=== PATIENT | female | born 1970 | race Caucasian/White ===

== ENCOUNTER 2017-03-01 14:18 | Inpatient (IN) | payer BC, OTHER ==
[~2017-03-01] VITALS: Ht 154.9 cm; Wt 64.8 kg
[~2017-03-01 14:18] MED LIST changes: -ESTR2TA PO; -ESTR2TAB4 PO; -MACR100C42 PO; -PARO40TA2 PO
[2017-03-01] MEDS ORDERED: ESTR2TA PO (14:29)
[2017-03-01] MEDS ORDERED: ONDANSETRON 4MG/2ML VIAL (J2405) IV ONE (15:00)
[2017-03-01] MEDS ORDERED: KETOROLAC 30 MG/ML VIAL (J1885) IV ONE (15:00)
[2017-03-01] MEDS ORDERED: NS 1,000 ML IV ONE ×2 (15:00→16:45)
[2017-03-01] MEDS ORDERED: LEVALBUTEROL 1.25 MG/0.5 ML CONCENTRATE NEB NEB ONE (15:15)
--- NOTE | 2017-03-01 15:28 | REP ---
Clinical: Cough . Comparison: 01/16/2012 . Technique: PA and lateral. Findings: The mediastinum and cardiac silhouette are normal. The lung [place] are clear and without acute consolidation, effusion, or pneumothorax. The skeletal structures are intact and normal. Impression: 1. No acute cardiopulmonary process. Signed by Raul Cintron MD 03/01/2017 03:20 P
[2017-03-01 15:47] LABS: BASO # 0.2 K/mm3 (0.0-0.2); BASO % 0.9 % (0.0-1.0); EOS # 0.6 K/mm3 (0.0-0.50); LARGE UNSTAINED CELL # 0.7 K/mm3 (0.0-0.4); LARGE UNSTAINED CELL % 2.4 % (0.0-4.0); LYMPH # 2.6 K/mm3 (1.5-4.5); LYMPH % 6.5 % (24.0-44.0); MEAN CORPUSCULAR HEMOGLOBIN 32.4 pg (27.0-33.0); MEAN CORPUSCULAR HGB CONC 32.8 g/dl (32.0-36.5); MEAN CORPUSCULAR VOLUME 98.8 fl (80.0-96.0); MONO # 1.4 K/mm3 (0.0-0.8); MONO % 4.9 % (0.0-5.0); NEUTROPHILS # 24.3 K/mm3 (1.8-7.7); NEUTROPHILS % 83.2 % (36.0-66.0); PLATELET COUNT, AUTOMATED 512 k/mm3 (150-450); RED CELL DISTRIBUTION WIDTH 14.2 % (11.5-14.5); WHITE BLOOD COUNT 29.2 K/mm3 (4.0-10.0)
[2017-03-01] MEDS ORDERED: cefTRIAXone SOD 1 GM in D5W MINI-BAG PLUS 50 ML IV ONE (16:00)
[2017-03-01 16:04] LABS: ALBUMIN 2.6 GM/DL (3.2-5.2); ALBUMIN/GLOBULIN RATIO 0.57 (1.00-1.93); ALKALINE PHOSPHATASE 176 U/L (45-117); ALT/SGPT 29 U/L (12-78); ANION GAP 8 MEQ/L (8-16); AST/SGOT 20 U/L (15-37); BILIRUBIN,TOTAL 0.2 MG/DL (0.2-1.0); BLOOD UREA NITROGEN 17 MG/DL (7-18); CALCIUM LEVEL 8.6 MG/DL (8.5-10.1); CARBON DIOXIDE LEVEL 27 MEQ/L (21-32); CHLORIDE LEVEL 98 MEQ/L (98-107); CREATININE FOR GFR 1.12 MG/DL (0.55-1.02); GLOMERULAR FILTRATION RATE 56.3 (>58); GLUCOSE, FASTING 89 MG/DL (70-105); POTASSIUM SERUM 3.5 MEQ/L (3.5-5.1); SODIUM LEVEL 133 MEQ/L (136-145); TOTAL PROTEIN 7.2 GM/DL (6.4-8.2)
[2017-03-01] MEDS ORDERED: ACETAMINOPHEN 325 MG TAB PO ONE (16:45)
--- NOTE | 2017-03-01 17:26 | REP ---
Clinical: Elevated liver function tests and abdominal pain. Technique: Mock scale ultrasound using curved array transducer. Findings: The liver and pancreas are normal in contour, size, and echogenicity without focal hepatic or pancreatic lesions identified. The patient is status post cholecystectomy. No biliary ductal dilatation is appreciated, and the common bile duct measures 6.9 mm diameter. The right kidney is normal in reniform shape without hydronephrosis and measures 12.3 x 4.4 x 5.0 cm. No ascites. Visualized portions of the abdominal aorta normal. Impression: Normal right upper quadrant and gallbladder abdominal ultrasound. Signed by Raul Cintron MD 03/01/2017 05:19 P
[2017-03-01] MEDS ORDERED: ESTR2TAB4 PO (17:27)
[2017-03-01] MEDS ORDERED: MACR100C42 PO (17:27)
[2017-03-01] MEDS ORDERED: PARO40TA2 PO (17:27)
[2017-03-01 18:00] VITALS: BP 109/64
[2017-03-01] MEDS: NS 1,000 ML IV SCH (20:32)
[2017-03-01] MEDS: metroNIDAZOLE 500 MG in APPROPRIATE DILUENT 1 EA IV SCH (20:32)
[2017-03-01] MEDS: LevoFLOXacin IV 250 MG in APPROPRIATE DILUENT 1 EA IV SCH (21:48)
[2017-03-01 22:00] VITALS: BP 101/57
--- NOTE | 2017-03-02 01:36 | HPE ---
DATE OF ADMISSION: 03/01/2017 PRIMARY CARE PROVIDER: PAVEL Chahal. CHIEF COMPLAINT: Malaise. HISTORY OF PRESENT ILLNESS: Patient is a 46-year-old female. She was sent from an urgent care center to be evaluated for marked increase in white blood cell count and a positive urine dip stick. She reports a 3-day history of low-grade fever and malaise, diffuse body aches. She also reports constipation. In the emergency department (ED), the urine test did confirm the presence of urinary tract infection (UTI). CT abdomen and pelvis revealed colitis. Patient agreed to be admitted for one or 2 days. REVIEW OF SYSTEMS: 10-point systems were assessed, all negative except listed above in history of present illness (HPI). PAST MEDICAL HISTORY: 1. Seizure disorder. 2. Hyperlipidemia. 3. Peptic ulcer disease. 4. Gastroesophageal reflux disease (GERD). 5. Depression. 6. Anxiety. PAST SURGICAL HISTORY: 1. Gastric bypass. 2. Cholecystectomy. 3. Upper endoscopy in 2007 and 2011. 4. Laparotomy with left salpingectomy due to infection in fallopian tube age 19. 5. Laparoscopy with attempted opening of a dilated right fallopian tube in 20s. 6. Dilation and curettage (D and C). 7. Hysteroscopy with endometrial ablation procedure. FAMILY HISTORY: Noncontributory. 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 She smokes and has been for 32 years. She drinks alcohol occasionally. ALLERGIES TO MEDICATIONS: CELECOXIB, reaction shortness of breath. LIST OF MEDICATIONS: - ascorbic acid 1000 mg once a day - vitamin B12 1000 mcg once daily - cyclobenzaprine 10 mg in the morning - Colace 100 mg once a day - estradiol 10 mg by mouth daily - loratadine 10 mg once a day - Singulair 10 mg once daily - multivitamin tablet once a day - omeprazole 40 mg once daily - paroxetine 40 mg once a day - Senokot 8.6 mg by mouth three times a day as needed for constipation - topiramate 200 mg by mouth every morning PHYSICAL EXAMINATION: VITAL SIGNS: Blood pressure 100/58, pulse 95, respiratory rate 18, oxygen saturation 98% in room air, temperature 100.5. GENERAL: She is alert, oriented to person, place, time, and circumstance, in no distress. HEENT: Pupils are equal, round and reactive to light. Extraocular muscles are intact. Anicteric sclerae. Mucous membranes moist. Neck is soft, supple, nontender to palpation. No palpable adenopathy. CARDIOVASCULAR SYSTEM: S1, S2 present with a regular rate. RESPIRATORY SYSTEM: Lungs are clear to auscultation. GASTROINTESTINAL: Abdomen is soft, mild tenderness to the right upper quadrant and right flank area. No guarding or rebound. No palpable organomegaly. MUSCULOSKELETAL SYSTEM: No edema, cyanosis or calf tenderness. Pulses are palpable in all extremities. SKIN: Warm, dry, acyanotic without rash, ecchymosis or petechiae. NEUROLOGIC: Nonfocal findings. LABORATORIES: Hematology: White blood cell count is 30, hemoglobin 12, hematocrit 38, platelets 512. Chemistry: Sodium 130, potassium 3.5, chloride 98, bicarbonate 27, BUN 17, creatinine 1.1, fasting glucose 89. Liver function tests within normal limits except for alkaline phosphatase of 176. Total protein 7.2, albumin 2.6. Urinalysis, the urine is cloudy with positive protein, trace ketones, +3 leukocyte esterase, positive white blood cell count, too high to count, red blood cells positive, bacteria +2. IMAGING STUDIES: Ultrasound of the liver showed normal right upper quadrant. Liver and gallbladder normal. Chest x-ray no acute cardiopulmonary process. CT scan of the abdomen and pelvis revealed colitis. IMPRESSION: 1. Urinary tract infection (UTI)/colitis. 2. Leukocytosis. 3. Thrombocytosis. 4. Mild hyponatremia. 5. Transaminitis. PLAN: Patient was admitted to the medical/surgical floor. Antibiotics continued, Levaquin and Flagyl. Saline fluid continued. Patient's home medications also resumed. Please followup labs in the morning. If trending downwards, patient would like to be discharged as soon as possible (BRITTANEY). Deep venous thrombosis (DVT) prophylaxis: She was encouraged to ambulate.
[2017-03-02] MEDS: metroNIDAZOLE 500 MG in APPROPRIATE DILUENT 1 EA IV SCH ×3 (03:55→19:43)
[2017-03-02] MEDS: NS 1,000 ML IV SCH ×3 (03:56→22:37)
[2017-03-02] MEDS ORDERED: PERCOCET 5MG/325MG TAB PO ONE ×2 (04:15)
[2017-03-02] MEDS: SENNA 8.6 MG TAB (SENOKOT) PO PRN ×2 (04:25→21:23)
[2017-03-02 06:00] VITALS: BP 115/57
[2017-03-02 06:21] LABS: MEAN CORPUSCULAR HEMOGLOBIN 33.7 pg (27.0-33.0); MEAN CORPUSCULAR HGB CONC 33.4 g/dl (32.0-36.5); MEAN CORPUSCULAR VOLUME 100.8 fl (80.0-96.0); RED CELL DISTRIBUTION WIDTH 14.2 % (11.5-14.5); WHITE BLOOD COUNT 24.4 K/mm3 (4.0-10.0)
[2017-03-02 07:21] LABS: ALBUMIN/GLOBULIN RATIO 0.49 (1.00-1.93); ALKALINE PHOSPHATASE 152 U/L (45-117); ALT/SGPT 22 U/L (12-78); ANION GAP 8 MEQ/L (8-16); AST/SGOT 14 U/L (15-37); BILIRUBIN,TOTAL 0.3 MG/DL (0.2-1.0); BLOOD UREA NITROGEN 10 MG/DL (7-18); CALCIUM LEVEL 7.6 MG/DL (8.5-10.1); CARBON DIOXIDE LEVEL 25 MEQ/L (21-32); CHLORIDE LEVEL 104 MEQ/L (98-107); CREATININE FOR GFR 0.85 MG/DL (0.55-1.02); GLOMERULAR FILTRATION RATE > 60.0 (>58); GLUCOSE, FASTING 89 MG/DL (70-105); POTASSIUM SERUM 3.7 MEQ/L (3.5-5.1); SODIUM LEVEL 137 MEQ/L (136-145); TOTAL PROTEIN 6.1 GM/DL (6.4-8.2)
--- NOTE | 2017-03-02 07:55 | REP ---
Clinical: Right flank pain. Comparison: 03/15/2015. Findings: Lung bases are clear. Visualized heart and pericardium normal. Liver, spleen, pancreas, bilateral adrenal glands and kidneys are normal for noncontrast evaluation. Specifically, no perinephric stranding, hydroureteronephrosis, intrarenal or obstructing ureteral calculi are identified. The patient is status post gastric bypass surgery, cholecystectomy, ventral hernia repair and hysterectomy. Mural thickening involving the ascending and mid transverse colon with trace pericolonic stranding suggests focal colitis. No bowel obstruction. No free air. No free fluid or drainable collection/abscess. Pelvis demonstrates partially collapsed normal bladder. Abdominal aorta without aneurysm. Surrounding musculoskeletal structures are intact. Impression: 1. Normal urinary tract system by noncontrast evaluation. 2. Presumed acute colitis involving the ascending through mid transverse colon. Signed by Raul Cintron MD 03/01/2017 03:27 P
[2017-03-02] MEDS: ESTRADIOL 1 MG TAB PO SCH (08:34)
[2017-03-02] MEDS: MULTIVITAMINS/MINERALS THERAP 1 TAB PO SCH (08:34)
[2017-03-02] MEDS: TOPIRAMATE (TopAMAX) 100 MG TAB PO SCH (08:34)
[2017-03-02] MEDS: PARoxetine 20 MG TAB PO SCH (08:34)
[2017-03-02] MEDS: CYCLOBENZAPRINE 10 MG TAB PO SCH (08:35)
[2017-03-02] MEDS: DOCUSATE SODIUM 100 MG CAP PO SCH (08:35)
[2017-03-02] MEDS: CYANOCOBALAMIN 500 MCG TAB PO SCH (08:35)
[2017-03-02] MEDS: OMEPRAZOLE 20 MG CAP PO SCH (08:35)
[2017-03-02] MEDS: MONTELUKAST 10 MG TAB PO SCH (08:35)
[2017-03-02] MEDS: ASCORBIC ACID 500 MG TAB PO SCH (08:35)
[2017-03-02] MEDS: LORATADINE 10 MG TAB PO SCH (08:35)
[2017-03-02] MEDS: ENOXAPARIN 40 MG/0.4 ML SYRINGE (J1650) SC SCH (09:00)
[2017-03-02] MEDS ORDERED: MORPHINE 2 MG/ML 1ML SYRINGE IV PRN (12:00)
[2017-03-02] MEDS: PERCOCET 5MG/325MG TAB PO PRN ×2 (12:14→18:15)
--- NOTE | 2017-03-02 13:48 | IPNPDOC ---
Text Note Date of Service The patient was seen on 03/02/17. NOTE Subjective: Abd pain resolved. No N/V. Objective: Vitals: (see below) General: No acute distress, laying comfortably in bed. HEENT: Moist mucous membranes. Neck: No JVD or lymphadenopathy Cardiac: RRR, No murmurs Pulm: Clear to auscultation b/l. No wheezing, rhonchi Abd: NT/ND + BS. No pain today. Ext: No edema or cyanosis Labs (see below) Images: CT Abd/pelvis 03/02/17 Impression: 1. Normal urinary tract system by noncontrast evaluation. 2. Presumed acute colitis involving the ascending through mid transverse colon. Abd u/s 03/02/17 Impression: Normal right upper quadrant and gallbladder abdominal ultrasound. Assessment/Plan 1. Sepsis secondary to colitis and urinary tract infection. Leukocytosis and fevers improving. On Levaquin and Flagyl. Improving. On IV fluids. Abdominal pain improving as well. Cultures pending. Pain control 2. Mild hyponatremia- likely prerenal. Improved. 3. Acute kidney injury - likely secondary to #1. Improved. Continue IV fluids. 4. Seizure disorder continue Topamax 5. History of gastric bypass 6. History of peptic ulcer disease 7. History of hyperlipidemia 8. History of Anxiety 9. Protein calorie malnutrition 10. Acute chronic anemia- macrocytic- we will send for Bruno and B12 levels. DVT prophy: Enoxaparin VS,Fishbone, I+O VS, Fishbone, I+O Laboratory Tests 03/01/17 15:33 Red Blood Count 3.81 L, Mean Corpuscular Volume 98.8 H, Mean Corpuscular Hemoglobin 32.4, Mean Corpuscular Hemoglobin Concent 32.8, Red Cell Distribution Width 14.2, Neutrophils (%) (Auto) 83.2 H, Lymphocytes (%) (Auto) 6.5 L, Monocytes (%) (Auto) 4.9, Eosinophils (%) (Auto) 2.0, Basophils (%) (Auto ) 0.9, Neutrophils # (Auto) 24.3 H, Lymphocytes # (Auto) 2.6, Monocytes # (Auto ) 1.4 H, Eosinophils # (Auto) 0.6 H, Basophils # (Auto) 0.2, Calcium Level 8.6, Aspartate Amino Transf (AST/SGOT) 20, Alanine Aminotransferase (ALT/SGPT) 29, Alkaline Phosphatase 176 H, Total Bilirubin 0.2, Total Protein 7.2 #, Albumin 2.6 L 03/02/17 05:42 Red Blood Count 3.34 L, Mean Corpuscular Volume 100.8 H, Mean Corpuscular Hemoglobin 33.7 H, Mean Corpuscular Hemoglobin Concent 33.4, Red Cell Distribution Width 14.2, Calcium Level 7.6 L, Aspartate Amino Transf (AST/SGOT) 14 L, Alanine Aminotransferase (ALT/SGPT) 22, Alkaline Phosphatase 152 H, Total Bilirubin 0.3, Total Protein 6.1 L, Albumin 2.0 #L Vital Signs Date Time Temp Pulse Resp B/P (MAP) Pulse Ox O2 Delivery O2 Flow Rate FiO2 03/02/17 12:44 18 Room Air 03/02/17 06:00 98.0 89 115/57 (76) 97 I&O- Last 24 Hours up to 6 AM 03/02/17 06:00 Intake Total 4370 ml Output Total 1450 ml Balance 2920 ml TIERA CARDENAS MD Mar 02, 2017 13:47
[2017-03-02 14:00] VITALS: BP 107/59
[2017-03-02] MEDS: LevoFLOXacin IV 250 MG in APPROPRIATE DILUENT 1 EA IV SCH (21:23)
[2017-03-02 22:00] VITALS: BP 117/62
[2017-03-03] MEDS: metroNIDAZOLE 500 MG in APPROPRIATE DILUENT 1 EA IV SCH ×3 (03:07→20:04)
[2017-03-03] MEDS: PERCOCET 5MG/325MG TAB PO PRN ×3 (03:11→17:58)
[2017-03-03 05:55] VITALS: BP 124/75
[2017-03-03 06:46] LABS: ALBUMIN 1.9 GM/DL (3.2-5.2); ALBUMIN/GLOBULIN RATIO 0.44 (1.00-1.93); ALKALINE PHOSPHATASE 136 U/L (45-117); ALT/SGPT 17 U/L (12-78); ANION GAP 10 MEQ/L (8-16); AST/SGOT 18 U/L (15-37); BILIRUBIN,TOTAL 0.3 MG/DL (0.2-1.0); BLOOD UREA NITROGEN 6 MG/DL (7-18); CALCIUM LEVEL 8.1 MG/DL (8.5-10.1); CARBON DIOXIDE LEVEL 20 MEQ/L (21-32); CHLORIDE LEVEL 109 MEQ/L (98-107); CREATININE FOR GFR 0.88 MG/DL (0.55-1.02); GLOMERULAR FILTRATION RATE > 60.0 (>58); GLUCOSE, FASTING 86 MG/DL (70-105); POTASSIUM SERUM 4.5 MEQ/L (3.5-5.1); SODIUM LEVEL 139 MEQ/L (136-145); TOTAL PROTEIN 6.2 GM/DL (6.4-8.2)
[2017-03-03 06:47] LABS: MEAN CORPUSCULAR VOLUME 102.9 fl (80.0-96.0)
[2017-03-03] MEDS: NS 1,000 ML IV SCH (08:56)
[2017-03-03] MEDS: ESTRADIOL 1 MG TAB PO SCH (08:56)
[2017-03-03] MEDS: PARoxetine 20 MG TAB PO SCH (08:57)
[2017-03-03] MEDS: OMEPRAZOLE 20 MG CAP PO SCH (08:57)
[2017-03-03] MEDS: MULTIVITAMINS/MINERALS THERAP 1 TAB PO SCH (08:57)
[2017-03-03] MEDS: LORATADINE 10 MG TAB PO SCH (08:57)
[2017-03-03] MEDS: CYANOCOBALAMIN 500 MCG TAB PO SCH (08:57)
[2017-03-03] MEDS: ASCORBIC ACID 500 MG TAB PO SCH (08:57)
[2017-03-03] MEDS: MONTELUKAST 10 MG TAB PO SCH (08:58)
[2017-03-03] MEDS: TOPIRAMATE (TopAMAX) 100 MG TAB PO SCH (08:58)
[2017-03-03] MEDS: CYCLOBENZAPRINE 10 MG TAB PO SCH (08:58)
[2017-03-03] MEDS: DOCUSATE SODIUM 100 MG CAP PO SCH (08:58)
[2017-03-03] MEDS: ENOXAPARIN 40 MG/0.4 ML SYRINGE (J1650) SC SCH (08:59)
--- NOTE | 2017-03-03 10:45 | IPNPDOC ---
Text Note Date of Service The patient was seen on 03/03/17. NOTE Subjective: Had mild abd discomfort and nausea with toast this am. No Vomiting. Objective: Vitals: (see below) General: No acute distress, laying comfortably in bed. HEENT: Moist mucous membranes. Neck: No JVD or lymphadenopathy Cardiac: RRR, No murmurs Pulm: Clear to auscultation b/l. No wheezing, rhonchi Abd: NT/ND + BS. No pain today. Ext: No edema or cyanosis Labs (see below) Images: CT Abd/pelvis 03/02/17 Impression: 1. Normal urinary tract system by noncontrast evaluation. 2. Presumed acute colitis involving the ascending through mid transverse colon. Abd u/s 03/02/17 Impression: Normal right upper quadrant and gallbladder abdominal ultrasound. Assessment/Plan 1. Sepsis secondary to colitis and urinary tract infection. Leukocytosis and fevers improving. On Levaquin and Flagyl. Improving. On IV fluids. Abdominal pain improving as well. Urine cx with E. Coli. Pain control. Change diet to full liquids. 2. Mild hyponatremia- likely prerenal. Improved. 3. Acute kidney injury - likely secondary to #1. Improved. Continue IV fluids. 4. Seizure disorder continue Topamax 5. History of gastric bypass 6. History of peptic ulcer disease 7. History of hyperlipidemia 8. History of Anxiety 9. Protein calorie malnutrition 10. Acute chronic anemia- macrocytic- we will send for Bruno and B12 levels. DVT prophy: Enoxaparin Plan to d/c in the next 24-48h. VS,Fishbone, I+O VS, Fishbone, I+O Laboratory Tests 03/03/17 05:44 Red Blood Count 3.39 L, Mean Corpuscular Volume 102.9 H, Mean Corpuscular Hemoglobin 33.0, Mean Corpuscular Hemoglobin Concent 32.0, Red Cell Distribution Width 14.0, Calcium Level 8.1 L, Aspartate Amino Transf (AST/SGOT) 18, Alanine Aminotransferase (ALT/SGPT) 17, Alkaline Phosphatase 136 H, Total Bilirubin 0.3, Total Protein 6.2 L, Albumin 1.9 L Vital Signs Date Time Temp Pulse Resp B/P (MAP) Pulse Ox O2 Delivery O2 Flow Rate FiO2 03/03/17 05:55 97.9 63 18 124/75 (91) 99 Room Air I&O- Last 24 Hours up to 6 AM 03/03/17 06:00 Intake Total 5030 ml Output Total 6200 ml Balance -1170 ml TIERA CARDENAS MD Mar 03, 2017 10:45
[2017-03-03 14:00] VITALS: BP 101/57
[2017-03-03 16:30] VITALS: BP 126/73
[2017-03-03 20:00] VITALS: BP 127/70
[2017-03-03] MEDS: LevoFLOXacin IV 250 MG in APPROPRIATE DILUENT 1 EA IV SCH (21:09)
[2017-03-04] VITALS: BP 113/74
[2017-03-04] MEDS: PERCOCET 5MG/325MG TAB PO PRN (00:07)
[2017-03-04] MEDS: NS 1,000 ML IV SCH (00:30)
[2017-03-04] MEDS: metroNIDAZOLE 500 MG in APPROPRIATE DILUENT 1 EA IV SCH ×2 (04:51→12:02)
[2017-03-04 06:48] LABS: MEAN CORPUSCULAR HGB CONC 32.1 g/dl (32.0-36.5); MEAN CORPUSCULAR VOLUME 99.7 fl (80.0-96.0); RED CELL DISTRIBUTION WIDTH 14.2 % (11.5-14.5); WHITE BLOOD COUNT 15.5 K/mm3 (4.0-10.0)
[2017-03-04 06:54] LABS: ALBUMIN/GLOBULIN RATIO 0.47 (1.00-1.93); ALKALINE PHOSPHATASE 119 U/L (45-117); ALT/SGPT 14 U/L (12-78); ANION GAP 7 MEQ/L (8-16); AST/SGOT 7 U/L (15-37); BILIRUBIN,TOTAL 0.2 MG/DL (0.2-1.0); BLOOD UREA NITROGEN 6 MG/DL (7-18); CALCIUM LEVEL 8.3 MG/DL (8.5-10.1); CARBON DIOXIDE LEVEL 24 MEQ/L (21-32); CHLORIDE LEVEL 111 MEQ/L (98-107); CREATININE FOR GFR 0.77 MG/DL (0.55-1.02); GLOMERULAR FILTRATION RATE > 60.0 (>58); GLUCOSE, FASTING 91 MG/DL (70-105); POTASSIUM SERUM 4.7 MEQ/L (3.5-5.1); SODIUM LEVEL 142 MEQ/L (136-145); TOTAL PROTEIN 6.3 GM/DL (6.4-8.2)
[2017-03-04 08:00] VITALS: BP 130/71
[2017-03-04] MEDS: ESTRADIOL 1 MG TAB PO SCH (08:36)
[2017-03-04] MEDS: ENOXAPARIN 40 MG/0.4 ML SYRINGE (J1650) SC SCH (08:36)
[2017-03-04 08:37] LABS: CONTROL LINE HCG INT CTR LINE PRESENT
[2017-03-04] MEDS: PARoxetine 20 MG TAB PO SCH (08:37)
[2017-03-04] MEDS: TOPIRAMATE (TopAMAX) 100 MG TAB PO SCH (08:37)
[2017-03-04] MEDS: ASCORBIC ACID 500 MG TAB PO SCH (08:37)
[2017-03-04] MEDS: CYCLOBENZAPRINE 10 MG TAB PO SCH (08:37)
[2017-03-04] MEDS: CYANOCOBALAMIN 500 MCG TAB PO SCH (08:37)
[2017-03-04] MEDS: MULTIVITAMINS/MINERALS THERAP 1 TAB PO SCH (08:38)
[2017-03-04] MEDS: LORATADINE 10 MG TAB PO SCH (08:38)
[2017-03-04] MEDS: MONTELUKAST 10 MG TAB PO SCH (08:38)
[2017-03-04] MEDS: OMEPRAZOLE 20 MG CAP PO SCH (08:38)
[2017-03-04] MEDS: DOCUSATE SODIUM 100 MG CAP PO SCH (08:39)
[2017-03-04] MEDS ORDERED: FLAG500T PO (11:33)
[2017-03-04] MEDS ORDERED: CIPR-249 PO (11:33)
--- NOTE | 2017-03-04 11:47 | DS.PDOC ---
Discharge Summary General Date of Admission Mar 01, 2017 at 16:32 Date of Discharge 03/04/17 Attending Physician: TIERA CARDENAS MD Discharge Summary PROCEDURES PERFORMED DURING STAY: None. ADMITTING/DISCHARGE DIAGNOSES: 1. Sepsis secondary to colitis and urinary tract infection 2. Mild hyponatremia resolved 3. Acute kidney injury resolved 4. History of seizure disorder 5. History of gastric bypass 6. History of peptic ulcer disease 7. History of hyperlipidemia 8. History of Anxiety 9. Protein calorie malnutrition 10. Acute chronic anemia COMPLICATIONS/CHIEF COMPLAINT: Acute Colitis;Elevated Wbc Count;Fever;Uti. HISTORY OF PRESENT ILLNESS/HOSPITAL COURSE: . This is a 46-year-old female past with history of gastric bypass, peptic ulcer disease, seizure disorder presents complaining of diffuse abdominal pain as well as urinary frequency and urgency. Upon further examination, patient was noted to have sepsis secondary to colitis as well as urinary tract infection. Patient's urine culture was positive for Escherichia coli. Patient was placed on Levaquin as well as Flagyl. Patient's leukocytosis signifying preventing 29-15. Patient was very anxious about wanting to go home today. Given that she is tolerating a diet and abdominal pain has resolved, will discharge patient on Cipro and Flagyl. Patient denies any chest pain/SOB/palpitations. No nausea/vomiting/abdominal pain. Pt is hemodynamically stable and will be discharged today. DISCHARGE MEDICATIONS: Please see below. ALLERGIES: Please see below. PHYSICAL EXAMINATION ON DISCHARGE: Vitals: (see below) General: No acute distress, laying comfortably in bed. HEENT: Moist mucous membranes. Neck: No JVD or lymphadenopathy Cardiac: RRR, No murmurs Pulm: Clear to auscultation b/l. No wheezing, rhonchi Abd: NT/ND + BS. No pain today. Ext: No edema or cyanosis LABORATORY DATA: Please see below. IMAGING: CT Abd/pelvis 03/02/17 Impression: 1. Normal urinary tract system by noncontrast evaluation. 2. Presumed acute colitis involving the ascending through mid transverse colon. Abd u/s 03/02/17 Impression: Normal right upper quadrant and gallbladder abdominal ultrasound. PROGNOSIS: Fair ACTIVITY: As tolerated. DIET: As tolerated DISCHARGE PLAN/DISPOSITION: Home DISCHARGE INSTRUCTIONS: 1. Follow-up PCP and GI 1-2 weeks. Return to ED if abdominal pain/ nausea/ vomiting persists. DISCHARGE CONDITION: Stable. TIME SPENT ON DISCHARGE: Greater than 30 minutes. Vital Signs/I&Os Vital Signs Date Time Temp Pulse Resp B/P (MAP) Pulse Ox O2 Delivery O2 Flow Rate FiO2 03/04/17 08:00 99.3 69 18 130/71 (90) 100 Room Air I&O- Last 24 Hours up to 6 AM 03/04/17 05:59 Intake Total 3868 ml Output Total 5475 ml Balance -1607 ml Laboratory Data Labs 24H Laboratory Tests 2 03/04/17 06:05: Anion Gap 7L, Glomerular Filtration Rate > 60.0, Blood Urea Nitrogen 6L, Creatinine 0.77, Sodium Level 142, Potassium Level 4.7, Chloride Level 111H, Carbon Dioxide Level 24, Calcium Level 8.3L, Aspartate Amino Transf (AST/SGOT) 7L, Alanine Aminotransferase (ALT/SGPT) 14, Alkaline Phosphatase 119H, Total Bilirubin 0.2, Total Protein 6.3L, Albumin 2.0L, Albumin/Globulin Ratio 0.47L CBC/BMP Laboratory Tests 03/04/17 06:05 Red Blood Count 3.39 L, Mean Corpuscular Volume 99.7 H, Mean Corpuscular Hemoglobin 32.0, Mean Corpuscular Hemoglobin Concent 32.1, Red Cell Distribution Width 14.2, Calcium Level 8.3 L, Aspartate Amino Transf (AST/SGOT) 7 L, Alanine Aminotransferase (ALT/SGPT) 14, Alkaline Phosphatase 119 H, Total Bilirubin 0.2, Total Protein 6.3 L, Albumin 2.0 L Microbiology Microbiology 03/01/17 Blood Culture - Preliminary, Resulted No Growth after 48 hours. All Specime... 03/01/17 Blood Culture - Preliminary, Resulted No Growth after 48 hours. All Specime... 03/03/17 Gastrointestinal Tract Panel (PCR) - Final, Complete 03/01/17 Urine Culture - Final, Complete Escherichia Coli Discharge Medications Scheduled Ascorbic Acid (Ascorbic Acid) 1,000 Mg Tab, 1,000 MG PO DAILY, (Reported) Ciprofloxacin HCl (Cipro) 500 Mg Tab, 500 MG PO BID Cyanocobalamin (Vitamin B12) 1,000 Mcg Tab, 1,000 MCG PO DAILY, (Reported) Cyclobenzaprine HCl (Cyclobenzaprine HCl) 10 Mg Tab, 10 MG PO QAM, (Reported) Docusate Sodium (Colace) 100 Mg Cap, 100 MG PO DAILY, (Reported) Estradiol (Estrace) 2 Mg Tab, 2 MG PO DAILY, (Reported) Loratadine (Claritin) 10 Mg Tab, 10 MG PO DAILY, (Reported) Metronidazole (Flagyl) 500 Mg Tab, 500 MG PO Q8H FOR 10 DAYS Montelukast Sodium (Singulair) 10 Mg Tab, 10 MG PO DAILY, (Reported) Multivitamins *[facility] STOCKED* (Thera M Plus *[facility] STOCK[facility]*) 1 Tab Tab, 1 TAB PO DAILY, (Reported) Omeprazole (Omeprazole) 40 Mg Cap, 40 MG PO DAILY, (Reported) TAKES 2 NEEDED Paroxetine (Paroxetine HCl) 40 Mg Tab, 40 MG PO DAILY, (Reported) Topiramate (Topiramate) 200 Mg Tab, 200 MG PO QAM, (Reported) Scheduled PRN Senna (Senna Laxative) 8.6 Mg Tab, 1 TAB PO TID PRN for CONSTIPATION, (Reported) Allergies Coded Allergies: Celecoxib (Verified Allergy, Severe, CANT BREATH, 07/18/16) TIERA CARDENAS MD Mar 04, 2017 11:47
== END 2017-03-04 13:15 | disposition home or self-care (01) | DRG 720 ==
LOC: M ED 15:41 → M ED INP 16:32 → M MSPAV 17:55 → M PED 03-03 16:10
PROVIDERS: ADMIT Hospitalist; ATTEND Internal Medicine
DX: A41.9 Sepsis, unspecified organism (principal); E46 Unspecified protein-calorie malnutrition; K52.9 Noninfective gastroenteritis and colitis, unspecified; N39.0 Urinary tract infection, site not specified; E87.1 Hypo-osmolality and hyponatremia; D72.829 Elevated white blood cell count, unspecified; D47.3 Essential (hemorrhagic) thrombocythemia; R74.0 Nonspecific elevation of levels of transaminase and lactic acid dehydrogenase [LDH]; G40.909 Epilepsy, unspecified, not intractable, without status epilepticus; E78.5 Hyperlipidemia, unspecified; F41.9 Anxiety disorder, unspecified; D53.9 Nutritional anemia, unspecified; B96.20 Unspecified Escherichia coli [E. coli] as the cause of diseases classified elsewhere; Z88.8 Allergy status to other drugs, medicaments and biological substances; Z79.899 Other long term (current) drug therapy; Z98.84 Bariatric surgery status

== ENCOUNTER → 2017-03-01 | Outpatient (CLI) | payer BC, OTHER ==
[~2017-03-01] MED LIST: ASCO10003 PO; CIPR-249 PO; CLAR1TAB2 PO; COLA100C5 PO; CYCL10TA PO; ESTR2TA PO; ESTR2TAB4 PO; FLAG500T PO; IRON65TA PO; MACR100C42 PO; OMEP40CA2 PO; OXYC1TAB23 PO; PARO20TA3 PO; PARO40TA2 PO; PERC5TAB12 PO; SENN8.6T17 PO; SING10TA32 PO; TOPI200T7 PO; VITA100072 PO; VITMTA PO
[2017-03-01 13:12] LABS: ALBUMIN 2.4 GM/DL (3.2-5.2); ALBUMIN/GLOBULIN RATIO 0.69 (1.00-1.93); ALKALINE PHOSPHATASE 186 U/L (45-117); ALT/SGPT 28 U/L (12-78); ANION GAP 6 MEQ/L (8-16); AST/SGOT 28 U/L (15-37); BILIRUBIN,TOTAL 0.2 MG/DL (0.2-1.0); BLOOD UREA NITROGEN 17 MG/DL (7-18); CALCIUM LEVEL 8.1 MG/DL (8.5-10.1); CARBON DIOXIDE LEVEL 29 MEQ/L (21-32); CHLORIDE LEVEL 100 MEQ/L (98-107); CREATININE FOR GFR 1.02 MG/DL (0.55-1.02); GLOMERULAR FILTRATION RATE > 60.0 (>58); GLUCOSE, FASTING 96 MG/DL (70-105); POTASSIUM SERUM 4.5 MEQ/L (3.5-5.1); SODIUM LEVEL 135 MEQ/L (136-145); TOTAL PROTEIN 5.9 GM/DL (6.4-8.2)
[2017-03-01 13:16] LABS: ADD MANUAL DIFFER YES; DIFF SLIDE NUMBER 146; MEAN CORPUSCULAR HEMOGLOBIN 32.6 pg (27.0-33.0); MEAN CORPUSCULAR HGB CONC 32.6 g/dl (32.0-36.5); MEAN CORPUSCULAR VOLUME 99.8 fl (80.0-96.0); PLATELET COUNT, AUTOMATED 517 k/mm3 (150-450); RED CELL DISTRIBUTION WIDTH 13.7 % (11.5-14.5)
[2017-03-01 13:22] LABS: WHITE BLOOD COUNT 34.7 K/mm3 (4.0-10.0)
[2017-03-01 13:53] LABS: EOSINOPHILS 2 % (0-5)
== END ==
LOC: M WUC 10:01
PROVIDERS: ATTEND Physician Assistant
DX: N39.0 Urinary tract infection, site not specified (principal); R53.83 Other fatigue

== ENCOUNTER → 2017-04-20 | Outpatient (CLI) | payer BC, OTHER ==
[~2017-04-20] MED LIST changes: +ESTR2TA PO; +ESTR2TAB4 PO; +MACR100C42 PO; +PARO40TA2 PO
== END ==
LOC: M WUC 10:14
PROVIDERS: ATTEND Family Medicine
DX: R53.83 Other fatigue (principal); Z98.890 Other specified postprocedural states

== ENCOUNTER → 2017-10-04 | Outpatient (CLI) | payer BC, OTHER ==
[2017-10-04 19:08] LABS: BASO # 0.1 10^3/uL (0.0-0.2); BASO % 1.4 % (0.0-1.0); EOS # 0.6 10^3/uL (0.0-0.50); EOS % 7.3 % (0.0-3.0); HEMATOCRIT 38.4 % (36.0-47.0); HEMOGLOBIN 12.6 g/dl (12.0-16.0); IMMATURE GRANULOCYTE % 0.3 % (0-0); LYMPH # 3.6 10^3/uL (1.5-4.5); LYMPH % 47.4 % (24.0-44.0); MEAN CORPUSCULAR HEMOGLOBIN 33.1 pg (27.0-33.0); MEAN CORPUSCULAR HGB CONC 32.8 g/dl (32.0-36.5); MEAN CORPUSCULAR VOLUME 100.8 fl (80.0-96.0); MONO # 0.9 10^3/uL (0.0-0.8); MONO % 11.3 % (0.0-5.0); NEUTROPHILS # 2.5 10^3/uL (1.8-7.7); NEUTROPHILS % 32.3 % (36.0-66.0); PLATELET COUNT, AUTOMATED 307 10^3/uL (150-450); RED BLOOD COUNT 3.81 10^6/uL (4.00-5.40); RED CELL DISTRIBUTION WIDTH 12.9 % (11.5-14.5); WHITE BLOOD COUNT 7.6 10^3/uL (4.0-10.0)
== END ==
LOC: M LAB 16:10
DX: R19.7 Diarrhea, unspecified (principal); Z80.0 Family history of malignant neoplasm of digestive organs
CPT/HCPCS: 85025

== ENCOUNTER → 2017-10-24 | Outpatient (REF) | payer OTHER | LOC: M LAB REF 16:41 | DX: Z80.0 Family history of malignant neoplasm of digestive organs (principal); R19.7 Diarrhea, unspecified ==

== ENCOUNTER 2018-02-06 11:22 | Day surgery (SDC) | payer BC, OTHER ==
[2018-02-06] MEDS: NS 1,000 ML IV (11:30)
== END 2018-02-06 13:08 | disposition home or self-care (01) ==
LOC: M OPP 11:22
DX: Z12.11 Encounter for screening for malignant neoplasm of colon (principal); K64.0 First degree hemorrhoids; D12.0 Benign neoplasm of cecum; Z80.0 Family history of malignant neoplasm of digestive organs; K22.8 Other specified diseases of esophagus; K44.9 Diaphragmatic hernia without obstruction or gangrene; R12 Heartburn; Z98.84 Bariatric surgery status; E78.5 Hyperlipidemia, unspecified; F17.210 Nicotine dependence, cigarettes, uncomplicated; M12.9 Arthropathy, unspecified; F41.9 Anxiety disorder, unspecified; F32.9 Major depressive disorder, single episode, unspecified; G43.909 Migraine, unspecified, not intractable, without status migrainosus; Z79.899 Other long term (current) drug therapy; Z88.8 Allergy status to other drugs, medicaments and biological substances; J30.2 Other seasonal allergic rhinitis; Z86.69 Personal history of other diseases of the nervous system and sense organs; Z90.711 Acquired absence of uterus with remaining cervical stump; Z90.49 Acquired absence of other specified parts of digestive tract
CPT/HCPCS: 45380

== ENCOUNTER → 2018-03-11 | Outpatient (REF) | payer OTHER | LOC: M SFHCLERA 17:56 | DX: J02.9 Acute pharyngitis, unspecified (principal) ==

== ENCOUNTER → 2019-05-01 | Outpatient (CLI) | payer BC, OTHER ==
[~2019-05-01] MED LIST changes: +ACAM0.05 PO; -ESTR2TA PO; +ESTR2TAB2 PO; +GABA-843 PO; +MONT10TA2 PO; +NALT50TA4 PO; -OMEP40CA2 PO; +OMEP40CA97 PO; +VITA100018 PO; -VITA100072 PO
--- NOTE | 2019-05-01 15:29 | REP ---
Chest x-ray: Two views. History: Abnormal breath sounds and cough. Comparison study: March 01, 2017. Findings: The lungs are symmetrically aerated and clear. Pleural angles are sharp. Heart size is normal. Pulmonary vasculature is not increased. There are clips in right upper quadrant consistent with previous cholecystectomy. Impression: No active disease. Electronically Signed by Francis Mcguire MD 05/01/2019 04:51 P
== END ==
LOC: M LRY 14:41
PROVIDERS: ATTEND Nurse Practitioner Family
DX: R09.89 Other specified symptoms and signs involving the circulatory and respiratory systems (principal)

== ENCOUNTER → 2019-05-01 | Outpatient (REF) | payer OTHER ==
[~2019-05-01] MED LIST changes: +OMEP40CA2 PO; -OMEP40CA97 PO
== END ==
LOC: M SFHCLERA 14:22
PROVIDERS: ATTEND Nurse Practitioner Family
DX: J02.9 Acute pharyngitis, unspecified (principal)

== ENCOUNTER → 2020-08-18 | Outpatient (CLI) | payer BC, OTHER ==
[~2020-08-18] MED LIST changes: +CYCL-707 PO; -CYCL10TA PO; -MONT10TA2 PO; +MONT5TAB2 PO; -OMEP40CA2 PO; +OMEP40CA97 PO
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
== END ==
LOC: M RAD 10:51
PROVIDERS: ATTEND Orthopaedic Surgery Hand Surgery
DX: M25.551 Pain in right hip (principal); T14.8XXA Other injury of unspecified body region, initial encounter

== ENCOUNTER → 2021-05-30 | Outpatient (CLI) | payer BC, OTHER ==
[~2021-05-30] MED LIST changes: +ALBU8.5H; +ARIP1TAB10 PO; +ARIP1TAB6 PO; +ESTR125TA PO; +GABA-282 PO; -GABA-843 PO; +LEXA1TAB2; +LORA-622 PO; +MONT10TA10 PO; -MONT5TAB2 PO; +OMEP40CA4 PO; -OMEP40CA97 PO; +[UNRECOGNIZED DRUG - CODE] PO
== END ==
LOC: M LABSMTC 10:02
PROVIDERS: ATTEND Anesthesiology
DX: Z01.812 Encounter for preprocedural laboratory examination (principal); Z20.822 Contact with and (suspected) exposure to COVID-19

== ENCOUNTER 2021-06-03 12:19 | Day surgery (SDC) | payer BC, OTHER ==
[~2021-06-03] VITALS: Ht 152.4 cm; Wt 67.1 kg
[~2021-06-03 12:19] MED LIST changes: +NS 1,000 ML IV ONE
[2021-06-03] MEDS ORDERED: propofoL 500 MG/50 ML VIAL As Ordered ONE (14:30)
[2021-06-03] MEDS ORDERED: fentaNYL 100 MCG/2 ML INJECTION (J3010) As Ordered ONE (14:30)
[2021-06-03] MEDS ORDERED: ePHEDrine SULFATE 25 MG/5 ML(5MG/ML) SYRINGE As Ordered ONE (14:40)
--- NOTE | 2021-06-03 14:57 | ROOR ---
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 Procedure: Pre-Anesthesia Assessment: - Prior to the procedure, a History and Physical was performed, and patient medications and allergies were reviewed. The patient is competent. The risks and benefits of the procedure and the sedation options and risks were discussed with the patient. All questions were answered and informed consent was obtained. Patient identification and proposed procedure were verified by the physician, the nurse and the anesthesiologist in the procedure room. Mental Status Examination: alert and oriented. Airway Examination: normal oropharyngeal airway and neck mobility. Respiratory Examination: clear to auscultation. CV Examination: normal. Prophylactic Antibiotics: The patient does not require prophylactic antibiotics. Prior Anticoagulants: The patient has taken no previous anticoagulant or antiplatelet agents. ASA Grade Assessment: II - A patient with mild systemic disease. After reviewing the risks and benefits, the patient was deemed in satisfactory condition to undergo the procedure. The anesthesia plan was to use monitored anesthesia care (MAC). Immediately prior to administration of medications, the patient was re-assessed for adequacy to receive sedatives. The heart rate, respiratory rate, oxygen saturations, blood pressure, adequacy of pulmonary ventilation, and response to care were monitored throughout the procedure. The physical status of the patient was re-assessed after the procedure. The Endoscope was introduced through the mouth, and advanced to the afferent and efferent jejunal loops. The upper GI endoscopy was accomplished without difficulty. The patient tolerated the procedure well. Findings: The examined esophagus was normal. The Z-line was irregular and was found 38 cm from the incisors. 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 The gastrojejunal anastomosis was characterized by congestion, edema, erosion, friable mucosa and ulceration. This was traversed. The lbsoq-vp-pdavlnd limb was characterized by congestion, erythema, friable mucosa and ulceration. The jejunojejunal anastomosis was characterized by congestion and erythema. The kwskukeq-ob-rwwgmxf limb was not examined as it could not be traversed. The examined jejunum was normal. Biopsies for histology were taken with a cold forceps for evaluation of celiac disease. Impression: - Normal esophagus. - Z-line irregular, 38 cm from the incisors. - Kelly-en-Y gastrojejunostomy with gastrojejunal anastomosis characterized by congestion, edema, erosion, friable mucosa and ulceration. - Normal examined jejunum. Biopsied. Recommendation: - Patient has a contact number available for emergencies. The signs and symptoms of potential delayed complications were discussed with the patient. Return to normal activities tomorrow. Written discharge instructions were provided to the patient. - Post gastric bypass diet (small frequent meals and avoid fatty/ fried foods). - Continue present medications. - Use Protonix (pantoprazole) 40 mg PO twice daily - to be taken in morning (1/2 hour before breakfast) and at bedtime ( atleast 3 hours after last meal) for 3 months. - Use sucralfate suspension 1 gram PO QID for 4 weeks. - Await pathology results. - Repeat upper endoscopy in 3 months to check healing, to evaluate the response to therapy and depending on the symptoms and clinical response. - Check CBC, serum iron , transferrin and ferritin levels (fasting labs) in 2 months. - Telephone GI clinic for pathology results in 2 weeks. - Return to GI clinic in [facility] (address: [address] [place] [address], [address] [place] [address], [place], [place],[address]) in 4 -- 6 weeks. Please call GI clinic @ [phone] for apppointment date and time. - Return to primary care physician. Procedure Code(s): --- Professional --- 78349, Esophagogastroduodenoscopy, flexible, transoral; with biopsy, single or multiple Diagnosis Code(s): --- Professional --- K22.8, Other specified diseases of esophagus Z98.0, Intestinal bypass and anastomosis status R10.13, Epigastric pain D50.9, Iron deficiency anemia, unspecified CPT copyright 2019 [employer]. All rights reserved. The codes documented in this report are preliminary and upon color coater review may be revised to meet current compliance requirements. Kade Arizmendi MD Kade Arizmendi MD 06/03/2021 2:57:29 PM Electronically signed by Kade Arizmendi MD Number of Addenda: 0 Note Initiated On: 06/03/2021 2:22 PM Estimated Blood Loss: Estimated blood loss was minimal.
--- NOTE | 2021-06-03 15:16 | ROOR ---
Patient Name: Kelsea Maria Procedure Date: 06/03/2021 2:23 PM Date of : 1970 Age: 51 Room: [facility] Gender: Female Note Status: Finalized Procedure: Colonoscopy Indications: Screening for colorectal malignant neoplasm, Incidental - Iron deficiency anemia Providers: Kade Arizmendi MD Referring MD: Jeni Gao ([place]), PILER Requesting Provider: Medicines: Monitored Anesthesia Care Complications: No immediate complications. Procedure: Pre-Anesthesia Assessment: - Prior to the procedure, a History and Physical was performed, and patient medications and allergies were reviewed. The patient is competent. The risks and benefits of the procedure and the sedation options and risks were discussed with the patient. All questions were answered and informed consent was obtained. Patient identification and proposed procedure were verified by the physician, the nurse and the anesthesiologist in the procedure room. Mental Status Examination: alert and oriented. Airway Examination: normal oropharyngeal airway and neck mobility. Respiratory Examination: clear to auscultation. CV Examination: normal. Prophylactic Antibiotics: The patient does not require prophylactic antibiotics. Prior Anticoagulants: The patient has taken no previous anticoagulant or antiplatelet agents. ASA Grade Assessment: II - A patient with mild systemic disease. After reviewing the risks and benefits, the patient was deemed in satisfactory condition to undergo the procedure. The anesthesia plan was to use moderate sedation / analgesia (conscious sedation). Immediately prior to administration of medications, the patient was re-assessed for adequacy to receive sedatives. The heart rate, respiratory rate, oxygen saturations, blood pressure, adequacy of pulmonary ventilation, and response to care were monitored throughout the procedure. The physical status of the patient was re-assessed after the procedure. The Colonoscope was introduced through the anus and advanced to the terminal ileum, with identification of the appendiceal orifice and IC valve. The colonoscopy was performed without difficulty. The patient tolerated the procedure well. The quality of the bowel preparation was good. The terminal ileum, ileocecal valve, appendiceal orifice, and rectum were photographed. Scope insertion time was 2 minutes. Scope withdrawal time was 9 minutes. The total duration of the procedure was 12 minutes. Findings: The perianal and digital rectal examinations were normal. The terminal ileum appeared normal. A 8 mm polyp was found in the appendiceal orifice. The polyp was sessile. The polyp was removed with a cold snare. Resection and retrieval were complete. Verification of patient identification for the specimen was done by the physician and nurse using the patient's name, date and medical record number. Estimated blood loss was minimal. A diffuse area of mild melanosis was found in the entire colon. Non-bleeding external and internal hemorrhoids were found during retroflexion. The hemorrhoids were medium-sized. Impression: - The examined portion of the ileum was normal. - One 8 mm polyp at the appendiceal orifice, removed with a cold snare. Resected and retrieved. - Melanosis in the colon. - Non-bleeding external and internal hemorrhoids. Recommendation: - Patient has a contact number available for emergencies. The signs and symptoms of potential delayed complications were discussed with the patient. Return to normal activities tomorrow. Written discharge instructions were provided to the patient. - High fiber diet and Post gastric bypass diet (small frequent meals and avoid fatty/ fried foods). - Continue present medications. - Await pathology results. - Repeat colonoscopy in 5 years for surveillance based on pathology results. - Follow the recommendations as per the other procedure note. - Telephone GI clinic for pathology results in 2 weeks. - Return to primary care physician. Procedure Code(s): --- Professional --- 27984, Colonoscopy, flexible; with removal of tumor(s), polyp(s), or other lesion(s) by snare technique Diagnosis Code(s): --- Professional --- Z12.11, Encounter for screening for malignant neoplasm of colon K64.8, Other hemorrhoids K63.5, Polyp of colon K63.89, Other specified diseases of intestine CPT copyright 2019 [employer] [place] [employer]. All rights reserved. The codes documented in this report are preliminary and upon line production cook review may be revised to meet current compliance requirements. Kade Arizmendi MD Kade Arizmendi MD 06/03/2021 3:15:42 PM Electronically signed by Kade Arizmendi MD Number of Addenda: 0 Note Initiated On: 06/03/2021 2:23 PM Estimated Blood Loss: Estimated blood loss was minimal.
[2021-06-03 15:17] VITALS: BP 111/63
== END 2021-06-03 15:18 | disposition home or self-care (01) ==
LOC: M OPP 12:19
PROVIDERS: ATTEND Internal Medicine Gastroenterology
DX: Z12.11 Encounter for screening for malignant neoplasm of colon (principal); D12.1 Benign neoplasm of appendix; K22.89 Other specified disease of esophagus; R10.13 Epigastric pain; K64.8 Other hemorrhoids; K63.89 Other specified diseases of intestine; D50.9 Iron deficiency anemia, unspecified; Z88.1 Allergy status to other antibiotic agents; Z98.84 Bariatric surgery status
CPT/HCPCS: 43239; 45385; 88305; J3010

== ENCOUNTER → 2022-03-14 | Outpatient (CLI) | payer BC, OTHER ==
[~2022-03-14] MED LIST changes: -ESTR2TAB2 PO; +ESTR2TAB3 PO; +GASTROGRAFIN SOLUTION 30ML (Q9963) As Ordered ONE; +ISOVUE-370 76% 100ML VIAL As Ordered ONE; -MONT10TA10 PO; +MONT10TA97 PO; -NS 1,000 ML IV ONE
== END ==
LOC: M RAD 07:07
PROVIDERS: ATTEND Surgery
DX: R10.13 Epigastric pain (principal); Z98.84 Bariatric surgery status; K28.9 Gastrojejunal ulcer, unspecified as acute or chronic, without hemorrhage or perforation; K25.1 Acute gastric ulcer with perforation
CPT/HCPCS: 74177; Q9963; Q9967

== ENCOUNTER → 2022-03-29 | Outpatient (REF) | payer OTHER, BC ==
[~2022-03-29] MED LIST changes: -GASTROGRAFIN SOLUTION 30ML (Q9963) As Ordered ONE; -ISOVUE-370 76% 100ML VIAL As Ordered ONE
== END ==
LOC: M LAB REF 15:54
PROVIDERS: ATTEND Student in an Organized Health Care Education/Training Program
DX: N39.0 Urinary tract infection, site not specified (principal)

== ENCOUNTER → 2022-05-22 | Outpatient (CLI) | payer BC, OTHER | LOC: M RAD 09:19 | PROVIDERS: ATTEND Nurse Practitioner Family | DX: Z87.891 Personal history of nicotine dependence (principal) ==

== ENCOUNTER 2023-06-30 12:58 | Inpatient (IN) | payer OTHER, BC ==
[~2023-06-30] VITALS: Ht 152.4 cm; Wt 55.2 kg
[~2023-06-30 12:58] MED LIST changes: +FOLIC ACID 1MG TAB PO SCH; +MONT-5 PO; +MULTIVITAMINS/MINERALS THERAP 1 TAB PO SCH; -SING10TA32 PO; +THIAMINE 100 MG TAB PO SCH
[2023-06-30] MEDS ORDERED: BACL10TA2 PO (13:50)
[2023-06-30] MEDS ORDERED: PANT40TA29 PO (13:50)
[2023-06-30] MEDS ORDERED: VILA40TA PO (13:50)
[2023-06-30] MEDS ORDERED: ARIP10TA32 (13:50)
[2023-06-30] MEDS ORDERED: LORazepam 2 MG TAB PO PRN ×2 (14:30→17:55)
[2023-06-30 14:37] LABS: HEMATOCRIT 40.1 % (36.0-47.0); HEMOGLOBIN 13.3 g/dl (12.0-15.5); MEAN CORPUSCULAR HEMOGLOBIN 32.4 pg (27.0-33.0); MEAN CORPUSCULAR HGB CONC 33.2 g/dl (32.0-36.5); MEAN CORPUSCULAR VOLUME 97.6 fl (80.0-96.0); PLATELET COUNT, AUTOMATED 369 10^3/uL (150-450); RED BLOOD COUNT 4.11 10^6/uL (4.00-5.40); WHITE BLOOD COUNT 9.8 10^3/uL (4.0-10.0)
[2023-06-30 15:01] LABS: ETHYL ALCOHOL (ETHANOL) 0.174 % (0.000-0.010)
[2023-06-30 15:02] LABS: SALICYLATE LEVEL < 3.0 MG/DL (<30)
[2023-06-30 15:05] LABS: ALBUMIN 4.1 G/DL (3.2-5.2); ALKALINE PHOSPHATASE 86 U/L (46-116); ALT/SGPT 25 U/L (7.0-40); AST/SGOT 27 U/L (<34); BILIRUBIN,DIRECT < 0.1 MG/DL (<0.4); BILIRUBIN,TOTAL 0.2 MG/DL (0.3-1.2); BLOOD UREA NITROGEN < 5 MG/DL (9-23); CALCIUM LEVEL 8.9 MG/DL (8.5-10.1); CARBON DIOXIDE LEVEL 28 MMOL/L (20-31); CHLORIDE LEVEL 99 MMOL/L (98-107); CREATININE FOR GFR 0.61 MG/DL (0.55-1.30); GLOMERULAR FILTRATION RATE > 60.0 (>51); GLUCOSE, FASTING 88 MG/DL (60-100); POTASSIUM SERUM 4.7 MMOL/L (3.5-5.1); SODIUM LEVEL 136 MMOL/L (136-145); THYROID STIMULATING HORMONE 1.154 uIU/ML (0.55-4.78); TOTAL PROTEIN 7.2 G/DL (5.7-8.2)
[2023-06-30 15:08] LABS: HCG, SERUM QUALITATIVE NEGATIVE (NEGATIVE)
[2023-06-30 15:36] LABS: AMPHETAMINES LEVEL URINE NEGATIVE (NEGATIVE); BARBITURATES URINE NEGATIVE (NEGATIVE); PHENCYCLIDINE URINE NEGATIVE (NEGATIVE)
[2023-06-30 15:37] LABS: BENZODIAZEPINES URINE NEGATIVE (NEGATIVE); CANNABINOIDS URINE NEGATIVE (NEGATIVE); COCAINE METABOLITE URINE NEGATIVE (NEGATIVE); METHADONE URINE NEGATIVE (NEGATIVE); OPIATES URINE NEGATIVE (NEGATIVE)
[2023-06-30] MEDS ORDERED: MOM 30ML SUSPENSION UDC PO PRN (17:55)
[2023-06-30] MEDS ORDERED: MAALOX 30 ML SUSP *UDC PO PRN (17:55)
[2023-06-30] MEDS ORDERED: IBUPROFEN 400MG TAB PO PRN (17:55)
[2023-06-30] MEDS ORDERED: diphenhydrAMINE 25MG CAP PO PRN (17:55)
[2023-06-30] MEDS ORDERED: ARIP1TAB10 PO (18:04)
[2023-06-30] MEDS ORDERED: HOME MED LIST COMPLETE! XX SCH (18:05)
[2023-06-30 20:59] VITALS: BP 133/71
[2023-06-30] MEDS ORDERED: ARIPiprazole 15 MG TAB (AbiLIFY) PO SCH (21:00)
[2023-06-30 21:01] VITALS: BP 133/71; TEMP 98.3; O2SAT 98
[2023-06-30] MEDS: THIAMINE 100 MG TAB PO SCH (21:44)
[2023-06-30] MEDS: TOPIRAMATE (TopAMAX) 100 MG TAB PO SCH (21:45)
[2023-07-01 06:34] VITALS: BP 151/75
[2023-07-01 06:35] VITALS: BP 151/75; TEMP 98.5; O2SAT 98
[2023-07-01] MEDS: MULTIVITAMINS/MINERALS THERAP 1 TAB PO SCH (09:37)
[2023-07-01] MEDS: FOLIC ACID 1MG TAB PO SCH (09:37)
[2023-07-01] MEDS: THIAMINE 100 MG TAB PO SCH ×2 (09:37→22:18)
[2023-07-01] MEDS: PANTOPRAZOLE 40MG TAB (PROTONIX) PO SCH ×2 (10:01→22:18)
[2023-07-01] MEDS: MONTELUKAST 10 MG TAB PO SCH (10:01)
[2023-07-01] MEDS: NALTREXONE 50 MG TAB PO SCH (10:49)
[2023-07-01 12:05] LABS: IRON (FE) 74 UG/DL (50-170); PERCENT SATURATION 23.1 % (13.2-45.0); TOTAL IRON BINDING CAPACITY 321 UG/DL (250-425)
[2023-07-01 12:07] LABS: FERRITIN 55.2 NG/ML (7.3-270.7)
[2023-07-01 12:08] LABS: FOLATE > 24.00 NG/ML (>5.4); VITAMIN B12 LEVEL 315 PG/ML (211-911)
[2023-07-01 14:00] VITALS: BP 142/73
[2023-07-01] MEDS: VILAZODONE 40 MG PO SCH (15:33)
[2023-07-01 16:06] VITALS: BP 142/73; TEMP 98.4; O2SAT 100
[2023-07-01 18:23] VITALS: BP 144/95
[2023-07-01] MEDS: ACETAMINOPHEN TAB 650MG DOSE (2X325MG) PO PRN (18:29)
[2023-07-01] MEDS: BACLOFEN 10 MG TAB PO SCH (22:18)
[2023-07-01] MEDS: TOPIRAMATE (TopAMAX) 100 MG TAB PO SCH (22:18)
[2023-07-01] MEDS: ARIPiprazole 15 MG TAB (AbiLIFY) PO SCH (22:18)
[2023-07-01 23:16] VITALS: BP 151/75
[2023-07-02 06:39] VITALS: BP 119/56; TEMP 98; O2SAT 98
[2023-07-02] MEDS: VILAZODONE 40 MG PO SCH (09:49)
[2023-07-02] MEDS: PANTOPRAZOLE 40MG TAB (PROTONIX) PO SCH ×2 (09:50→20:19)
[2023-07-02] MEDS: MONTELUKAST 10 MG TAB PO SCH (09:50)
[2023-07-02] MEDS: THIAMINE 100 MG TAB PO SCH ×2 (09:50→20:19)
[2023-07-02] MEDS: MULTIVITAMINS/MINERALS THERAP 1 TAB PO SCH (09:50)
[2023-07-02] MEDS: FOLIC ACID 1MG TAB PO SCH (09:50)
[2023-07-02] MEDS: NALTREXONE 50 MG TAB PO SCH (09:50)
[2023-07-02] MEDS ORDERED: ESCITALOPRAM OXALATE 10 MG TAB (LEXAPRO) PO ONE (12:00)
[2023-07-02 14:30] VITALS: BP 122/82
[2023-07-02 16:16] VITALS: BP 114/61; TEMP 98.7; O2SAT 97
[2023-07-02] MEDS: ARIPiprazole 15 MG TAB (AbiLIFY) PO SCH (20:19)
[2023-07-02] MEDS: TOPIRAMATE (TopAMAX) 100 MG TAB PO SCH (20:19)
[2023-07-02] MEDS: BACLOFEN 10 MG TAB PO SCH (20:19)
[2023-07-02] MEDS: traZODone 50 MG TAB PO PRN (20:19)
[2023-07-02 23:16] VITALS: BP 120/77
[2023-07-03 06:17] VITALS: BP 107/64; TEMP 98; O2SAT 100
[2023-07-03] MEDS ORDERED: ESCITALOPRAM OXALATE 10 MG TAB (LEXAPRO) PO SCH (09:00)
[2023-07-03] MEDS: PANTOPRAZOLE 40MG TAB (PROTONIX) PO SCH ×2 (09:05→20:31)
[2023-07-03] MEDS: MONTELUKAST 10 MG TAB PO SCH (09:05)
[2023-07-03] MEDS: NALTREXONE 50 MG TAB PO SCH (09:05)
[2023-07-03] MEDS: VILAZODONE 40 MG PO SCH (09:06)
[2023-07-03] MEDS ORDERED: NICOTINE 21MG/24HR 1 EA TRANSDERMAL TD PRN (09:55)
[2023-07-03 17:59] VITALS: BP 121/69; TEMP 96.9; O2SAT 97
[2023-07-03] MEDS: BACLOFEN 10 MG TAB PO SCH (20:31)
[2023-07-03] MEDS: ARIPiprazole 15 MG TAB (AbiLIFY) PO SCH (20:31)
[2023-07-03] MEDS: TOPIRAMATE (TopAMAX) 100 MG TAB PO SCH (20:31)
[2023-07-03] MEDS: traZODone 50 MG TAB PO PRN (20:31)
[2023-07-04 06:16] VITALS: BP 116/70; TEMP 97; O2SAT 96
[2023-07-04] MEDS: VILAZODONE 40 MG PO SCH (08:24)
[2023-07-04] MEDS: NALTREXONE 50 MG TAB PO SCH (08:25)
[2023-07-04] MEDS: MONTELUKAST 10 MG TAB PO SCH (08:25)
[2023-07-04] MEDS: PANTOPRAZOLE 40MG TAB (PROTONIX) PO SCH ×2 (08:25→20:19)
[2023-07-04] MEDS: ESCITALOPRAM OXALATE 10 MG TAB (LEXAPRO) PO SCH (08:25)
[2023-07-04 15:39] VITALS: BP 134/77; TEMP 98.1; O2SAT 100
[2023-07-04] MEDS: ACETAMINOPHEN TAB 650MG DOSE (2X325MG) PO PRN (16:56)
[2023-07-04] MEDS: TOPIRAMATE (TopAMAX) 100 MG TAB PO SCH (20:18)
[2023-07-04] MEDS: ARIPiprazole 15 MG TAB (AbiLIFY) PO SCH (20:19)
[2023-07-04] MEDS: traZODone 50 MG TAB PO PRN (20:19)
[2023-07-04] MEDS: BACLOFEN 10 MG TAB PO SCH (20:19)
[2023-07-05] MEDS: ACETAMINOPHEN TAB 650MG DOSE (2X325MG) PO PRN (05:02)
[2023-07-05] MEDS: VILAZODONE 40 MG PO SCH (08:57)
[2023-07-05] MEDS: PANTOPRAZOLE 40MG TAB (PROTONIX) PO SCH ×2 (08:57→21:05)
[2023-07-05] MEDS: NALTREXONE 50 MG TAB PO SCH (08:57)
[2023-07-05] MEDS: MONTELUKAST 10 MG TAB PO SCH (08:57)
[2023-07-05] MEDS: ESCITALOPRAM OXALATE 10 MG TAB (LEXAPRO) PO SCH (08:57)
[2023-07-05] MEDS ORDERED: ABIL1TAB12 PO (10:21)
[2023-07-05] MEDS ORDERED: TOPA100T12 PO (10:21)
[2023-07-05] MEDS ORDERED: NALT50TA4 PO (10:21)
[2023-07-05] MEDS ORDERED: NICO21PAT TD (10:21)
[2023-07-05 16:21] VITALS: BP 133/83; TEMP 98.2; O2SAT 99
[2023-07-05] MEDS: ARIPiprazole 15 MG TAB (AbiLIFY) PO SCH (21:04)
[2023-07-05] MEDS: BACLOFEN 10 MG TAB PO SCH (21:05)
[2023-07-05] MEDS: TOPIRAMATE (TopAMAX) 100 MG TAB PO SCH (21:05)
[2023-07-05] MEDS: traZODone 50 MG TAB PO PRN (21:05)
[2023-07-06 06:21] VITALS: BP 105/62; TEMP 98.1; O2SAT 98
[2023-07-06] MEDS: MONTELUKAST 10 MG TAB PO SCH (09:13)
[2023-07-06] MEDS: PANTOPRAZOLE 40MG TAB (PROTONIX) PO SCH (09:13)
[2023-07-06] MEDS: NALTREXONE 50 MG TAB PO SCH (09:13)
[2023-07-06] MEDS: VILAZODONE 40 MG PO SCH (09:13)
== END 2023-07-06 11:03 | disposition home or self-care (01) | DRG 881 ==
LOC: M ED 12:58 → M ED INP 17:53 → M PSY 20:48
PROVIDERS: ADMIT Student in an Organized Health Care Education/Training Program; ATTEND Student in an Organized Health Care Education/Training Program
DX: F32.A Depression, unspecified (principal); F10.280 Alcohol dependence with alcohol-induced anxiety disorder; R45.851 Suicidal ideations; F10.239 Alcohol dependence with withdrawal, unspecified; G43.909 Migraine, unspecified, not intractable, without status migrainosus; D50.9 Iron deficiency anemia, unspecified; F43.20 Adjustment disorder, unspecified; M06.9 Rheumatoid arthritis, unspecified; K21.9 Gastro-esophageal reflux disease without esophagitis; Z98.84 Bariatric surgery status; Z90.49 Acquired absence of other specified parts of digestive tract; F17.290 Nicotine dependence, other tobacco product, uncomplicated; Z79.899 Other long term (current) drug therapy; Z88.0 Allergy status to penicillin; Z88.8 Allergy status to other drugs, medicaments and biological substances

== ENCOUNTER → 2025-06-08 | Outpatient (CLI) | payer OTHER ==
[~2025-06-08] MED LIST changes: +ABIL1TAB12 PO; +ARIP10TA63; +BACL10TA2 PO; -FOLIC ACID 1MG TAB PO SCH; +GABA-1172 PO; -GABA-282 PO; +LORA-1164 PO; -LORA-622 PO; -MULTIVITAMINS/MINERALS THERAP 1 TAB PO SCH; +NICO21PAT TD; +PANT40TA29 PO; -THIAMINE 100 MG TAB PO SCH; +TOPA100T12 PO; +TOPI-14 PO; -TOPI200T7 PO; +VILA40TA PO
== END ==
LOC: M WHC 08:33
PROVIDERS: ATTEND Student in an Organized Health Care Education/Training Program
DX: S52.592A Other fractures of lower end of left radius, initial encounter for closed fracture (principal); W18.30XA Fall on same level, unspecified, initial encounter; Y92.009 Unspecified place in unspecified non-institutional (private) residence as the place of occurrence of the external cause